=== PATIENT | male | born 1950 | race African-American/Black ===

== ENCOUNTER 2016-07-31 04:41 | Emergency (ER) | payer MEDICARE, OTHER ==
[~2016-07-31] VITALS: Ht 177.8 cm; Wt 90.0 kg
[~2016-07-31 04:41] MED LIST: AMLODIPINE; ASPI-1035 PO; ATOR40TA70 PO; CARV25TA47 PO; COLCHICINE PO; FURO20TA4 PO; ISOS60TA4 PO; LOPE2TAB26 PO; LOSA1TAB34 PO; VIT
[2016-07-31 04:43] VITALS: BP 164/92
== END 2016-07-31 08:47 | disposition left against medical advice (07) ==
LOC: ER 04:53
DX: R07.89 Other chest pain (principal); I11.9 Hypertensive heart disease without heart failure; I51.9 Heart disease, unspecified; E78.00 Pure hypercholesterolemia, unspecified; F12.10 Cannabis abuse, uncomplicated; Z88.6 Allergy status to analgesic agent; Z79.899 Other long term (current) drug therapy
CPT/HCPCS: 99283

== ENCOUNTER 2016-11-02 10:55 | Inpatient (IN) | payer MEDICARE, OTHER ==
[~2016-11-02] VITALS: Ht 167.6 cm; Wt 80.3 kg
[~2016-11-02 10:55] MED LIST changes: -ASPI-1035 PO; +ASPI-1159 PO
[2016-11-02] MEDS ORDERED: SODIUM CHLORIDE 0.9% 500 ML IV ONE (11:30)
[2016-11-02] MEDS ORDERED: CHLORDIAZEPOXIDE 25MG CAPSULE PO ONE (11:30)
[2016-11-02 11:37] LABS: BASOPHILS % 1.7 % (0.0-2.0); EOSINOPHILS % 8.5 % (0.0-5.0); HEMATOCRIT. 33.3 % (42.0-52.0); HEMOGLOBIN. 11.4 g/dL (14.0-18.0); LYMPHOCYTES % 32.4 % (20.0-50.0); MEAN CORPUSCULAR HEMOGLOBIN 33.7 pg (28.0-32.0); MEAN CORPUSCULAR VOLUME 98.2 fL (80.0-94.0); MEAN PLATELET VOLUME 7.7 fl (7.4-10.4); MONOCYTES % 9.8 % (2.0-8.0); NEUTROPHILS % 47.6 % (40.0-76.0); PLATELET 199 x1000/uL (130-400); RED BLOOD CELL COUNT 3.39 mill/uL (4.7-6.1); RED CELL DISTRIBUTION WIDTH 14.6 % (11.6-14.6)
[2016-11-02 11:40] LABS: PROTHROMBIN TIME 10.1 sec
[2016-11-02 11:44] LABS: CARBON DIOXIDE 19 mEq/L (21-32); CHLORIDE 109 mEq/L (98-107); TROPONIN I 0.05 ng/mL (0.00-0.04)
[2016-11-02 11:51] LABS: CLARITY URINE CLEAR (CLEAR); COLOR URINE YELLOW (YELLOW); GLUCOSE URINE NEGATIVE (NEGATIVE); KETONES URINE 1+ (NEGATIVE); LEUKOCYTE ESTERASE URINE NEGATIVE (NEGATIVE); NITRITE URINE NEGATIVE (NEGATIVE); OCCULT BLOOD URINE TRACE (NEGATIVE); PROTEIN URINE 3+ (NEGATIVE); SPECIFIC GRAVITY URINE 1.023 (1.005-1.030)
[2016-11-02] MEDS ORDERED: POTASSIUM CHLORIDE 20MEQ TABLET SR PO ONE (12:15)
[2016-11-02 12:24] LABS: *AMPHETAMINES SCREEN URINE NEGATIVE (NEGATIVE); *BARBITURATES SCREEN URINE NEGATIVE (NEGATIVE); *BENZODIAZEPINES SCREEN URINE NEGATIVE (NEGATIVE); *COCAINE SCREEN URINE PRESUMTIVE POSITIVE (NEGATIVE); CANNABINOID URINE SCREEN NEGATIVE (NEGATIVE); METHADONE URINE SCREEN NEGATIVE (NEGATIVE); OPIATES URINE SCREEN NEGATIVE (NEGATIVE); PHENCYCLIDINE URINE SCREEN NEGATIVE (NEGATIVE)
[2016-11-02] MEDS ORDERED: CLONIDINE 0.1MG TABLET PO PRN (16:41)
[2016-11-02] MEDS ORDERED: CLONIDINE 0.2MG TABLET PO PRN (16:42)
[2016-11-02 21:20] VITALS: BP 169/86
[2016-11-02 21:30] VITALS: BP 169/86
[2016-11-02] MEDS: AMLODIPINE 5MG TABLET PO SCH (21:55)
[2016-11-03] VITALS: BP 143/83
[2016-11-03 04:00] VITALS: BP 138/87
[2016-11-03 06:35] LABS: EOSINOPHILS % 7.6 % (0.0-5.0); HEMATOCRIT. 32.8 % (42.0-52.0); HEMOGLOBIN. 10.9 g/dL (14.0-18.0); LYMPHOCYTES % 28.5 % (20.0-50.0); MEAN CORPUSCULAR HEMOGLOBIN 33.1 pg (28.0-32.0); MEAN CORPUSCULAR VOLUME 100.1 fL (80.0-94.0); MEAN PLATELET VOLUME 8.4 fl (7.4-10.4); MONOCYTES % 10.7 % (2.0-8.0); NEUTROPHILS % 52.2 % (40.0-76.0); PLATELET 198 x1000/uL (130-400); RED BLOOD CELL COUNT 3.28 mill/uL (4.7-6.1)
[2016-11-03 07:51] VITALS: BP 149/89
[2016-11-03 07:58] LABS: CHLORIDE 111 mEq/L (98-107)
[2016-11-03 08:29] LABS: CARBON DIOXIDE 17 mEq/L (21-32); CREATINE KINASE 129 IU/L (39-308); CREATINE KINASE MB FRACTION 3.2 ng/mL (0.5-3.6); HDL CHOLESTEROL 75 mg/dL (40-59); LDL CHOLESTEROL 48 mg/dL (5-100); TROPONIN I 0.05 ng/mL (0.00-0.04)
[2016-11-03] MEDS: AMLODIPINE 5MG TABLET PO SCH ×2 (08:44→20:36)
[2016-11-03 12:15] VITALS: BP 146/86
[2016-11-03] MEDS ORDERED: FURO20TA4 PO (12:33)
[2016-11-03] MEDS ORDERED: ATOR-2 PO (12:33)
[2016-11-03] MEDS ORDERED: HYDR-4134 PO (12:33)
[2016-11-03] MEDS ORDERED: TAMS0.4C31 PO (12:33)
[2016-11-03] MEDS: ASPIRIN 81MG EC TABLET PO SCH (13:19)
[2016-11-03] MEDS: FUROSEMIDE 20MG TABLET PO SCH (13:19)
[2016-11-03] MEDS ORDERED: CARV25TA47 PO ×2 (13:48)
[2016-11-03] MEDS: CARVEDILOL 25MG TABLET PO SCH ×2 (15:38→20:36)
[2016-11-03 15:55] VITALS: BP 155/97
[2016-11-03] MEDS ORDERED: MAGNESIUM 2 G PREMIX 50 ML IV NR (16:00)
[2016-11-03 20:00] VITALS: BP 160/100
[2016-11-03] MEDS ORDERED: TAMSULOSIN HCL 0.4MG SR CAPSULE PO SCH (21:00)
[2016-11-04] VITALS: BP 143/81
[2016-11-04 04:00] VITALS: BP 120/77
[2016-11-04 07:09] LABS: EOSINOPHILS % 8.2 % (0.0-5.0); HEMOGLOBIN. 10.6 g/dL (14.0-18.0); LYMPHOCYTES % 33.1 % (20.0-50.0); MEAN CORPUSCULAR HEMOGLOBIN 32.9 pg (28.0-32.0); MEAN PLATELET VOLUME 8.3 fl (7.4-10.4); MONOCYTES % 12.2 % (2.0-8.0); NEUTROPHILS % 45.5 % (40.0-76.0); PLATELET 190 x1000/uL (130-400); RED BLOOD CELL COUNT 3.24 mill/uL (4.7-6.1); RED CELL DISTRIBUTION WIDTH 14.6 % (11.6-14.6)
[2016-11-04 07:40] LABS: CARBON DIOXIDE 22 mEq/L (21-32); CHLORIDE 110 mEq/L (98-107)
[2016-11-04 08:00] VITALS: BP 144/86
[2016-11-04] MEDS: ASPIRIN 81MG EC TABLET PO SCH (09:04)
[2016-11-04] MEDS: FUROSEMIDE 20MG TABLET PO SCH (09:04)
[2016-11-04] MEDS: CARVEDILOL 25MG TABLET PO SCH (09:04)
[2016-11-04] MEDS: AMLODIPINE 5MG TABLET PO SCH (09:05)
[2016-11-04 12:00] VITALS: BP 128/87
[2016-11-04 14:27] VITALS: BP 137/90
== END 2016-11-04 16:45 | disposition home or self-care (01) | DRG 205 ==
LOC: ER 11:15 → 8WST 12:35 → ENRESERV 19:48 → EDBEDREQ 20:53
PROVIDERS: ADMIT Internal Medicine Nephrology; ATTEND Internal Medicine Nephrology
DX: M94.0 Chondrocostal junction syndrome [Tietze] (principal); E43 Unspecified severe protein-calorie malnutrition; I47.2 Ventricular tachycardia; E87.2 Acidosis; I42.9 Cardiomyopathy, unspecified; K57.90 Diverticulosis of intestine, part unspecified, without perforation or abscess without bleeding; N18.3 Chronic kidney disease, stage 3 (moderate); M10.9 Gout, unspecified; I12.9 Hypertensive chronic kidney disease with stage 1 through stage 4 chronic kidney disease, or unspecified chronic kidney disease; D64.9 Anemia, unspecified; E78.00 Pure hypercholesterolemia, unspecified; E78.5 Hyperlipidemia, unspecified; E83.42 Hypomagnesemia; F10.10 Alcohol abuse, uncomplicated; F14.10 Cocaine abuse, uncomplicated; M19.90 Unspecified osteoarthritis, unspecified site; Z88.6 Allergy status to analgesic agent; Z68.28 Body mass index [BMI] 28.0-28.9, adult; Z86.73 Personal history of transient ischemic attack (TIA), and cerebral infarction without residual deficits; Z79.899 Other long term (current) drug therapy
CPT/HCPCS: 36415; 71010; 80053; 80061; 80305; 81001; 82550; 82553; 83690; 83735; 83880; 84481; 84484; 85025; 85379; 85610; 93005; 93306; 96360; 99285; J3475; J7040; J7050

== ENCOUNTER 2016-11-16 17:52 | Inpatient (IN) | payer MEDICARE, OTHER ==
[~2016-11-16] VITALS: Ht 167.6 cm; Wt 76.4 kg
[~2016-11-16 17:52] MED LIST changes: +ATOR-2 PO; +HYDR-4134 PO; +TAMS0.4C31 PO
[2016-11-16] MEDS ORDERED: SODIUM CHLORIDE 0.9% 1,000 ML IV ONE (18:07)
[2016-11-16] MEDS ORDERED: KETOROLAC 15MG/ML VIAL IV ONE (18:15)
[2016-11-16 18:48] LABS: BASOPHILS % 1.3 % (0.0-2.0); EOSINOPHILS % 1.5 % (0.0-5.0); HEMATOCRIT. 34.4 % (42.0-52.0); HEMOGLOBIN. 11.4 g/dL (14.0-18.0); LYMPHOCYTES % 20.2 % (20.0-50.0); MEAN CORPUSCULAR HEMOGLOBIN 32.9 pg (28.0-32.0); MEAN CORPUSCULAR VOLUME 99.1 fL (80.0-94.0); MEAN PLATELET VOLUME 7.6 fl (7.4-10.4); MONOCYTES % 5.6 % (2.0-8.0); NEUTROPHILS % 71.4 % (40.0-76.0); PLATELET 326 x1000/uL (130-400); RED BLOOD CELL COUNT 3.47 mill/uL (4.7-6.1); RED CELL DISTRIBUTION WIDTH 14.4 % (11.6-14.6)
[2016-11-16 18:52] LABS: PROTHROMBIN TIME 10.1 sec
[2016-11-16 19:06] LABS: CARBON DIOXIDE 15 mEq/L (21-32); CHLORIDE 104 mEq/L (98-107); ETHANOL BLOOD 21 mg/dL; TROPONIN I 0.09 ng/mL (0.00-0.04)
[2016-11-16] MEDS ORDERED: ASPIRIN 325MG TABLET PO ONE (20:00)
[2016-11-16 20:39] LABS: CLARITY URINE CLEAR (CLEAR); COLOR URINE YELLOW (YELLOW); GLUCOSE URINE NEGATIVE (NEGATIVE); KETONES URINE 1+ (NEGATIVE); LEUKOCYTE ESTERASE URINE NEGATIVE (NEGATIVE); NITRITE URINE NEGATIVE (NEGATIVE); OCCULT BLOOD URINE NEGATIVE (NEGATIVE); PH URINE 5.5 (4.5-8.0); PROTEIN URINE 2+ (NEGATIVE); UROBILINOGEN URINE 0.2 E.U./dL (0.2-1.0)
[2016-11-16 20:56] LABS: *AMPHETAMINES SCREEN URINE NEGATIVE (NEGATIVE); *BARBITURATES SCREEN URINE NEGATIVE (NEGATIVE); *BENZODIAZEPINES SCREEN URINE NEGATIVE (NEGATIVE); *COCAINE SCREEN URINE NEGATIVE (NEGATIVE); CANNABINOID URINE SCREEN NEGATIVE (NEGATIVE); METHADONE URINE SCREEN NEGATIVE (NEGATIVE); OPIATES URINE SCREEN NEGATIVE (NEGATIVE); PHENCYCLIDINE URINE SCREEN NEGATIVE (NEGATIVE)
[2016-11-17] VITALS (7 sets, daily range): BP systolic 132–173; BP diastolic 65–99
[2016-11-17] MEDS ORDERED: MAGNESIUM/ALUMINUM HYDROXIDE/SIMETHICONE 30ML UDC PO PRN (01:00)
[2016-11-17] MEDS ORDERED: DOCUSATE SODIUM 100MG CAPSULE PO PRN (01:00)
[2016-11-17] MEDS ORDERED: ONDANSETRON HCL 4MG/2ML VIAL IV PRN (01:00)
[2016-11-17] MEDS ORDERED: ENOXAPARIN 40MG/0.4ML SYR SUBCUT SCH ×2 (03:00→09:00)
[2016-11-17] MEDS: CLONIDINE 0.1MG TABLET PO PRN (09:18)
[2016-11-17] MEDS: ISOSORBIDE MONONITRATE 60MG TABLET SR 24HR PO SCH (17:40)
[2016-11-17] MEDS: ASPIRIN 81MG EC TABLET PO SCH (17:40)
[2016-11-17] MEDS: CARVEDILOL 25MG TABLET PO SCH (17:40)
[2016-11-17] MEDS: ATORVASTATIN CALCIUM 40MG TABLET PO SCH (21:04)
[2016-11-17] MEDS: TAMSULOSIN HCL 0.4MG SR CAPSULE PO SCH (21:06)
[2016-11-17] MEDS: HYDRALAZINE HCL 25MG TABLET PO SCH (21:07)
[2016-11-18] VITALS: BP 124/75
[2016-11-18 04:00] VITALS: BP 137/85
[2016-11-18] MEDS: HYDRALAZINE HCL 25MG TABLET PO SCH ×3 (05:22→21:00)
[2016-11-18 06:06] LABS: BASOPHILS % 0.6 % (0.0-2.0); EOSINOPHILS % 5.1 % (0.0-5.0); HEMATOCRIT. 29.9 % (42.0-52.0); HEMOGLOBIN. 9.9 g/dL (14.0-18.0); MEAN CORPUSCULAR HEMOGLOBIN 32.9 pg (28.0-32.0); MEAN CORPUSCULAR VOLUME 99.3 fL (80.0-94.0); MEAN PLATELET VOLUME 7.9 fl (7.4-10.4); MONOCYTES % 11.9 % (2.0-8.0); NEUTROPHILS % 57.4 % (40.0-76.0); PLATELET 260 x1000/uL (130-400); RED BLOOD CELL COUNT 3.01 mill/uL (4.7-6.1); RED CELL DISTRIBUTION WIDTH 14.6 % (11.6-14.6)
[2016-11-18 08:00] VITALS: BP 141/88
[2016-11-18] MEDS: CARVEDILOL 25MG TABLET PO SCH ×2 (08:50→17:15)
[2016-11-18] MEDS: ASPIRIN 81MG EC TABLET PO SCH (08:50)
[2016-11-18] MEDS: ISOSORBIDE MONONITRATE 60MG TABLET SR 24HR PO SCH (08:50)
[2016-11-18] MEDS ORDERED: ENOXAPARIN 40MG/0.4ML SYR SUBCUT SCH (09:00)
[2016-11-18] MEDS ORDERED: CLOPIDOGREL 75MG TABLET PO SCH (09:00)
[2016-11-18] MEDS ORDERED: MEDICATION NOT ON FORMULARY EA (Atorvastatin Calcium 1 TAB) PO SCH (09:00)
[2016-11-18 12:00] VITALS: BP 105/69
[2016-11-18 16:00] VITALS: BP 135/75
[2016-11-18] MEDS ORDERED: MONTELUKAST SODIUM 10MG TABLET PO SCH (17:00)
[2016-11-18] MEDS ORDERED: DIGOXIN 125MCG TABLET PO SCH (18:00)
[2016-11-18 20:00] VITALS: BP 151/101
[2016-11-18] MEDS: ATORVASTATIN CALCIUM 40MG TABLET PO SCH (20:57)
[2016-11-18] MEDS: TAMSULOSIN HCL 0.4MG SR CAPSULE PO SCH (20:57)
[2016-11-19] VITALS (7 sets, daily range): BP systolic 113–162; BP diastolic 75–112
[2016-11-19] MEDS: HYDRALAZINE HCL 25MG TABLET PO SCH (05:38)
[2016-11-19 06:28] LABS: BASOPHILS % 0.9 % (0.0-2.0); EOSINOPHILS % 6.1 % (0.0-5.0); HEMATOCRIT. 29.9 % (42.0-52.0); HEMOGLOBIN. 9.9 g/dL (14.0-18.0); MEAN CORPUSCULAR VOLUME 99.5 fL (80.0-94.0); MEAN PLATELET VOLUME 7.9 fl (7.4-10.4); MONOCYTES % 12.6 % (2.0-8.0); NEUTROPHILS % 48.4 % (40.0-76.0); PLATELET 232 x1000/uL (130-400); RED CELL DISTRIBUTION WIDTH 14.5 % (11.6-14.6)
[2016-11-19 07:22] LABS: CARBON DIOXIDE 24 mEq/L (21-32); CHLORIDE 111 mEq/L (98-107)
[2016-11-19] MEDS: ASPIRIN 81MG EC TABLET PO SCH (08:28)
[2016-11-19] MEDS: CLONIDINE 0.1MG TABLET PO PRN ×2 (08:29→16:17)
[2016-11-19] MEDS: ISOSORBIDE MONONITRATE 60MG TABLET SR 24HR PO SCH (08:29)
[2016-11-19] MEDS: CARVEDILOL 25MG TABLET PO SCH ×2 (08:29→16:18)
[2016-11-19] MEDS: ACETAMINOPHEN 325MG TABLET PO PRN (08:39)
[2016-11-19] MEDS ORDERED: POTASSIUM CHLORIDE 20MEQ TABLET SR PO SCH (13:15)
[2016-11-19] MEDS: HYDRALAZINE HCL 50MG TABLET PO SCH (13:44)
[2016-11-19] MEDS: FUROSEMIDE 20MG TABLET PO SCH (13:45)
[2016-11-19] MEDS: LOSARTAN POTASSIUM 50 MG TABLET PO SCH (18:39)
[2016-11-19] MEDS: ATORVASTATIN CALCIUM 40MG TABLET PO SCH (20:42)
[2016-11-19] MEDS: TAMSULOSIN HCL 0.4MG SR CAPSULE PO SCH (20:43)
[2016-11-19] MEDS: AMLODIPINE 5MG TABLET PO SCH (20:43)
[2016-11-20] VITALS: BP 153/85
[2016-11-20] MEDS: HYDRALAZINE HCL 50MG TABLET PO SCH ×2 (01:07→06:48)
[2016-11-20 04:00] VITALS: BP 137/90
[2016-11-20 06:22] LABS: BASOPHILS % 0.8 % (0.0-2.0); EOSINOPHILS % 5.3 % (0.0-5.0); HEMATOCRIT. 29.8 % (42.0-52.0); HEMOGLOBIN. 10.1 g/dL (14.0-18.0); LYMPHOCYTES % 24.5 % (20.0-50.0); MEAN CORPUSCULAR HEMOGLOBIN 33.5 pg (28.0-32.0); MEAN CORPUSCULAR VOLUME 99.3 fL (80.0-94.0); MEAN PLATELET VOLUME 8.4 fl (7.4-10.4); MONOCYTES % 10.7 % (2.0-8.0); NEUTROPHILS % 58.7 % (40.0-76.0); PLATELET 238 x1000/uL (130-400); RED CELL DISTRIBUTION WIDTH 14.7 % (11.6-14.6)
[2016-11-20] MEDS: ACETAMINOPHEN 325MG TABLET PO PRN ×2 (07:00→11:57)
[2016-11-20 07:45] LABS: CHLORIDE 108 mEq/L (98-107)
[2016-11-20 07:54] LABS: CARBON DIOXIDE 23 mEq/L (21-32); HDL CHOLESTEROL 70 mg/dL (40-59); LDL CHOLESTEROL 49 mg/dL (5-100)
[2016-11-20 08:00] VITALS: BP 157/79
[2016-11-20] MEDS ORDERED: MAGNESIUM 2 G PREMIX 50 ML IV SCH (10:00)
[2016-11-20] MEDS: ASPIRIN 81MG EC TABLET PO SCH (10:13)
[2016-11-20] MEDS: ISOSORBIDE MONONITRATE 60MG TABLET SR 24HR PO SCH (10:13)
[2016-11-20] MEDS: LOSARTAN POTASSIUM 50 MG TABLET PO SCH (10:14)
[2016-11-20] MEDS: FUROSEMIDE 20MG TABLET PO SCH (10:14)
[2016-11-20] MEDS: CARVEDILOL 25MG TABLET PO SCH (10:14)
[2016-11-20] MEDS: AMLODIPINE 5MG TABLET PO SCH (10:14)
[2016-11-20 12:00] VITALS: BP 127/70
[2016-11-20 12:26] VITALS: BP 135/75
== END 2016-11-20 14:35 | disposition home or self-care (01) | DRG 683 ==
LOC: ER 18:18 → 5WST 22:55 → ENRESERV 23:07 → SUPCPDRO 11-17 00:46
PROVIDERS: ADMIT Internal Medicine Nephrology; ATTEND Internal Medicine Nephrology
DX: N17.9 Acute kidney failure, unspecified (principal); I13.0 Hypertensive heart and chronic kidney disease with heart failure and stage 1 through stage 4 chronic kidney disease, or unspecified chronic kidney disease; E87.2 Acidosis; I42.0 Dilated cardiomyopathy; M94.0 Chondrocostal junction syndrome [Tietze]; K21.9 Gastro-esophageal reflux disease without esophagitis; E78.00 Pure hypercholesterolemia, unspecified; E78.5 Hyperlipidemia, unspecified; E86.0 Dehydration; E87.6 Hypokalemia; F14.10 Cocaine abuse, uncomplicated; F17.210 Nicotine dependence, cigarettes, uncomplicated; I50.9 Heart failure, unspecified; I16.0 Hypertensive urgency; M10.9 Gout, unspecified; N18.3 Chronic kidney disease, stage 3 (moderate); N40.0 Benign prostatic hyperplasia without lower urinary tract symptoms; Z79.82 Long term (current) use of aspirin; Z79.899 Other long term (current) drug therapy; Z82.49 Family history of ischemic heart disease and other diseases of the circulatory system; Z86.73 Personal history of transient ischemic attack (TIA), and cerebral infarction without residual deficits; Z91.19 Patient's noncompliance with other medical treatment and regimen; Z88.8 Allergy status to other drugs, medicaments and biological substances
CPT/HCPCS: 36415; 71010; 80048; 80053; 80061; 80305; 81001; 83036; 83605; 83690; 83735; 83880; 84484; 84550; 85025; 85610; 87493; 93005; 93306; 96374; 99291; G0482; J1650; J1885; J3475; J7030

== ENCOUNTER 2016-11-29 20:37 | Emergency (ER) | payer MEDICARE, OTHER ==
[~2016-11-29] VITALS: Ht 167.6 cm; Wt 75.0 kg
[~2016-11-29 20:37] MED LIST changes: -ATOR40TA70 PO
[2016-11-29 20:40] VITALS: BP 140/58
== END 2016-11-29 21:00 | disposition left against medical advice (07) ==
LOC: ER 20:42
DX: Z53.21 Procedure and treatment not carried out due to patient leaving prior to being seen by health care provider (principal)

== ENCOUNTER 2016-12-28 10:14 | Inpatient (IN) | payer MEDICARE, OTHER ==
[~2016-12-28] VITALS: Ht 182.9 cm; Wt 80.7 kg
[2016-12-28] MEDS ORDERED: ASPIRIN 81MG TABLET PO ONE (12:15)
[2016-12-28 12:51] LABS: BASOPHILS % 1.4 % (0.0-2.0); EOSINOPHILS % 1.5 % (0.0-5.0); HEMATOCRIT. 28.4 % (42.0-52.0); HEMOGLOBIN. 9.5 g/dL (14.0-18.0); LYMPHOCYTES % 19.6 % (20.0-50.0); MEAN CORPUSCULAR HEMOGLOBIN 33.8 pg (28.0-32.0); MEAN CORPUSCULAR VOLUME 101.4 fL (80.0-94.0); MEAN PLATELET VOLUME 7.3 fl (7.4-10.4); MONOCYTES % 9.1 % (2.0-8.0); NEUTROPHILS % 68.4 % (40.0-76.0); PLATELET 254 x1000/uL (130-400); RED CELL DISTRIBUTION WIDTH 16.3 % (11.6-14.6)
[2016-12-28 12:59] LABS: CARBON DIOXIDE 17 mEq/L (21-32); CHLORIDE 108 mEq/L (98-107)
[2016-12-28 13:05] LABS: TROPONIN I 0.06 ng/mL (0.00-0.04)
[2016-12-28 13:24] LABS: CLARITY URINE CLEAR (CLEAR); COLOR URINE YELLOW (YELLOW); GLUCOSE URINE NEGATIVE (NEGATIVE); KETONES URINE TRACE (NEGATIVE); LEUKOCYTE ESTERASE URINE TRACE (NEGATIVE); NITRITE URINE NEGATIVE (NEGATIVE); OCCULT BLOOD URINE NEGATIVE (NEGATIVE); PROTEIN URINE NEGATIVE (NEGATIVE); SPECIFIC GRAVITY URINE 1.015 (1.005-1.030); UROBILINOGEN URINE 0.2 E.U./dL (0.2-1.0)
[2016-12-28 14:02] LABS: *AMPHETAMINES SCREEN URINE NEGATIVE (NEGATIVE); *BARBITURATES SCREEN URINE NEGATIVE (NEGATIVE); *BENZODIAZEPINES SCREEN URINE NEGATIVE (NEGATIVE); *COCAINE SCREEN URINE NEGATIVE (NEGATIVE); CANNABINOID URINE SCREEN NEGATIVE (NEGATIVE); METHADONE URINE SCREEN NEGATIVE (NEGATIVE); OPIATES URINE SCREEN NEGATIVE (NEGATIVE); PHENCYCLIDINE URINE SCREEN NEGATIVE (NEGATIVE)
[2016-12-28 18:50] VITALS: BP 175/67
[2016-12-28] MEDS ORDERED: HYDROCODONE/ACETAMINOPHEN 5/325MG TABLET PO PRN (19:00)
[2016-12-28] MEDS ORDERED: ONDANSETRON HCL 4MG/2ML VIAL IV PRN (19:00)
[2016-12-28] MEDS ORDERED: ACETAMINOPHEN 325MG TABLET PO PRN (19:00)
[2016-12-28] MEDS ORDERED: CLONIDINE 0.1MG TABLET PO PRN (19:00)
[2016-12-28] MEDS: ENOXAPARIN 40MG/0.4ML SYR SUBCUT SCH (19:06)
[2016-12-28] MEDS: AMLODIPINE 5MG TABLET PO SCH (19:08)
[2016-12-28 19:38] LABS: CREATINE KINASE MB FRACTION 2.3 ng/mL (0.5-3.6); TROPONIN I 0.07 ng/mL (0.00-0.04)
[2016-12-28 19:51] VITALS: BP 175/67
[2016-12-28 20:00] VITALS: BP 163/56
[2016-12-29] VITALS (8 sets, daily range): BP systolic 126–176; BP diastolic 58–89
[2016-12-29 06:26] LABS: HEMATOCRIT. 30.1 % (42.0-52.0); MEAN CORPUSCULAR HEMOGLOBIN 33.5 pg (28.0-32.0); MEAN CORPUSCULAR VOLUME 101.3 fL (80.0-94.0); MEAN PLATELET VOLUME 7.5 fl (7.4-10.4); PLATELET 257 x1000/uL (130-400); RED BLOOD CELL COUNT 2.97 mill/uL (4.7-6.1); RED CELL DISTRIBUTION WIDTH 16.5 % (11.6-14.6)
[2016-12-29 07:07] LABS: CARBON DIOXIDE 20 mEq/L (21-32); CHLORIDE 112 mEq/L (98-107); CREATINE KINASE 105 IU/L (39-308); TROPONIN I 0.06 ng/mL (0.00-0.04)
[2016-12-29 07:13] LABS: CREATINE KINASE MB FRACTION 1.8 ng/mL (0.5-3.6); LDL CHOLESTEROL 67 mg/dL (5-100)
[2016-12-29 07:17] LABS: HDL CHOLESTEROL 82 mg/dL (40-59)
[2016-12-29] MEDS: ASPIRIN 81MG TABLET PO SCH (09:29)
[2016-12-29] MEDS: AMLODIPINE 5MG TABLET PO SCH ×2 (09:29→17:21)
[2016-12-29 09:54] LABS: PLATELET ESTIMATE NORMAL
[2016-12-29] MEDS ORDERED: MEDICATION NOT ON FORMULARY EA (Atorvastatin Calcium 1 TAB) PO SCH (13:30)
[2016-12-29] MEDS: HYDRALAZINE HCL 25MG TABLET PO SCH ×2 (13:42→22:48)
[2016-12-29] MEDS: TAMSULOSIN HCL 0.4MG SR CAPSULE PO SCH (13:42)
[2016-12-29] MEDS: CARVEDILOL 25MG TABLET PO SCH ×2 (13:42→21:25)
[2016-12-29] MEDS ORDERED: ATORVASTATIN CALCIUM 40MG TABLET PO SCH (21:00)
[2016-12-29] MEDS: ENOXAPARIN 40MG/0.4ML SYR SUBCUT SCH (21:24)
[2016-12-30] VITALS: BP 144/80
[2016-12-30 04:00] VITALS: BP 140/85
[2016-12-30] MEDS: HYDRALAZINE HCL 25MG TABLET PO SCH ×2 (06:31→14:00)
[2016-12-30 06:45] LABS: BASOPHILS % 1.9 % (0.0-2.0); EOSINOPHILS % 5.2 % (0.0-5.0); HEMATOCRIT. 30.8 % (42.0-52.0); HEMOGLOBIN. 10.2 g/dL (14.0-18.0); LYMPHOCYTES % 40.9 % (20.0-50.0); MEAN CORPUSCULAR HEMOGLOBIN 33.8 pg (28.0-32.0); MEAN PLATELET VOLUME 7.8 fl (7.4-10.4); MONOCYTES % 13.4 % (2.0-8.0); NEUTROPHILS % 38.6 % (40.0-76.0); PLATELET 245 x1000/uL (130-400); RED BLOOD CELL COUNT 3.02 mill/uL (4.7-6.1); RED CELL DISTRIBUTION WIDTH 16.3 % (11.6-14.6)
[2016-12-30 07:15] LABS: CARBON DIOXIDE 22 mEq/L (21-32); CHLORIDE 112 mEq/L (98-107); HDL CHOLESTEROL 74 mg/dL (40-59); LDL CHOLESTEROL 68 mg/dL (5-100); TROPONIN I 0.03 ng/mL (0.00-0.04)
[2016-12-30 08:00] VITALS: BP 138/78
[2016-12-30] MEDS ORDERED: ASPIRIN 81MG EC TABLET PO SCH (09:00)
[2016-12-30] MEDS: ASPIRIN 81MG TABLET PO SCH (09:13)
[2016-12-30] MEDS: CARVEDILOL 25MG TABLET PO SCH (09:18)
[2016-12-30] MEDS: AMLODIPINE 5MG TABLET PO SCH (09:18)
[2016-12-30] MEDS: TAMSULOSIN HCL 0.4MG SR CAPSULE PO SCH (09:18)
[2016-12-30 14:15] VITALS: BP 122/70
== END 2016-12-30 14:45 | disposition home or self-care (01) | DRG 291 ==
LOC: ER 10:14 → 6WST 14:35 → EDBEDREQ 16:30 → ENRESERV 16:54
PROVIDERS: ADMIT Internal Medicine Nephrology; ATTEND Internal Medicine Nephrology
DX: I13.0 Hypertensive heart and chronic kidney disease with heart failure and stage 1 through stage 4 chronic kidney disease, or unspecified chronic kidney disease (principal); I50.43 Acute on chronic combined systolic (congestive) and diastolic (congestive) heart failure; N17.9 Acute kidney failure, unspecified; I42.0 Dilated cardiomyopathy; K76.0 Fatty (change of) liver, not elsewhere classified; I73.9 Peripheral vascular disease, unspecified; N18.3 Chronic kidney disease, stage 3 (moderate); E78.5 Hyperlipidemia, unspecified; D64.9 Anemia, unspecified; F10.10 Alcohol abuse, uncomplicated; F14.10 Cocaine abuse, uncomplicated; F17.200 Nicotine dependence, unspecified, uncomplicated; E78.00 Pure hypercholesterolemia, unspecified; I25.10 Atherosclerotic heart disease of native coronary artery without angina pectoris; N18.9 Chronic kidney disease, unspecified; N40.0 Benign prostatic hyperplasia without lower urinary tract symptoms; Z79.82 Long term (current) use of aspirin; Z79.899 Other long term (current) drug therapy; Z82.49 Family history of ischemic heart disease and other diseases of the circulatory system; Z86.73 Personal history of transient ischemic attack (TIA), and cerebral infarction without residual deficits; Z88.6 Allergy status to analgesic agent; E83.51 Hypocalcemia
CPT/HCPCS: 36415; 71010; 76770; 80053; 80061; 80305; 81001; 82550; 82553; 83036; 83735; 83880; 84443; 84484; 85025; 85379; 85610; 85651; 93005; 93306; 99285; J1650

== ENCOUNTER 2017-01-11 21:01 | Emergency (ER) | payer MEDICARE, OTHER ==
[~2017-01-11] VITALS: Ht 182.9 cm; Wt 79.5 kg
[~2017-01-11 21:01] MED LIST changes: -AMLODIPINE; -COLCHICINE PO; -FURO20TA4 PO; -ISOS60TA4 PO; -LOPE2TAB26 PO; -LOSA1TAB34 PO; -VIT
[2017-01-11 22:36] LABS: BASOPHILS % 0.5 % (0.0-2.0); EOSINOPHILS % 4.3 % (0.0-5.0); HEMATOCRIT. 27.7 % (42.0-52.0); HEMOGLOBIN. 9.4 g/dL (14.0-18.0); LYMPHOCYTES % 51.4 % (20.0-50.0); MEAN CORPUSCULAR HEMOGLOBIN 33.6 pg (28.0-32.0); MEAN CORPUSCULAR VOLUME 98.9 fL (80.0-94.0); MEAN PLATELET VOLUME 7.3 fl (7.4-10.4); MONOCYTES % 6.6 % (2.0-8.0); NEUTROPHILS % 37.2 % (40.0-76.0); PLATELET 221 x1000/uL (130-400); RED BLOOD CELL COUNT 2.79 mill/uL (4.7-6.1); RED CELL DISTRIBUTION WIDTH 16.3 % (11.6-14.6)
[2017-01-11 22:49] LABS: CLARITY URINE CLEAR (CLEAR); COLOR URINE YELLOW (YELLOW); GLUCOSE URINE NEGATIVE (NEGATIVE); KETONES URINE NEGATIVE (NEGATIVE); LEUKOCYTE ESTERASE URINE NEGATIVE (NEGATIVE); NITRITE URINE NEGATIVE (NEGATIVE); OCCULT BLOOD URINE NEGATIVE (NEGATIVE); PROTEIN URINE TRACE (NEGATIVE); SPECIFIC GRAVITY URINE 1.008 (1.005-1.030); UROBILINOGEN URINE 0.2 E.U./dL (0.2-1.0)
[2017-01-11 22:49] LABS: CARBON DIOXIDE 24 mEq/L (21-32); CHLORIDE 100 mEq/L (98-107); ETHANOL BLOOD 223 mg/dL
[2017-01-11 23:04] LABS: *AMPHETAMINES SCREEN URINE NEGATIVE (NEGATIVE); *BARBITURATES SCREEN URINE NEGATIVE (NEGATIVE); *BENZODIAZEPINES SCREEN URINE NEGATIVE (NEGATIVE); *COCAINE SCREEN URINE NEGATIVE (NEGATIVE); CANNABINOID URINE SCREEN NEGATIVE (NEGATIVE); METHADONE URINE SCREEN NEGATIVE (NEGATIVE); OPIATES URINE SCREEN NEGATIVE (NEGATIVE); PHENCYCLIDINE URINE SCREEN NEGATIVE (NEGATIVE)
[2017-01-11] MEDS ORDERED: POTASSIUM CHLORIDE 20MEQ TABLET SR PO ONE (23:15)
[2017-01-12] MEDS ORDERED: IPRATROPIUM/ALBUTEROL 0.5-3(2.5)MG/3ML NEB HHN ONE (00:15)
[2017-01-12 02:00] VITALS: BP 138/74
== END 2017-01-12 02:00 | disposition home or self-care (01) ==
LOC: ER 21:01
DX: F10.129 Alcohol abuse with intoxication, unspecified (principal); I11.0 Hypertensive heart disease with heart failure; I50.9 Heart failure, unspecified; J44.1 Chronic obstructive pulmonary disease with (acute) exacerbation; Z79.82 Long term (current) use of aspirin; R53.1 Weakness; E87.6 Hypokalemia; Z87.448 Personal history of other diseases of urinary system
CPT/HCPCS: 36415; 71010; 80053; 80305; 81001; 83880; 85025; 93005; 94640; 99285; G0482; J7620

== ENCOUNTER 2017-01-18 02:21 | Inpatient (IN) | payer MEDICARE, OTHER ==
[~2017-01-18] VITALS: Ht 167.6 cm; Wt 70.3 kg
[2017-01-18] MEDS ORDERED: LABETALOL HCL 20MG/4ML CARPUJECT IV ONE (02:45)
[2017-01-18] MEDS ORDERED: ASPIRIN 81MG TABLET PO ONE (02:45)
[2017-01-18 03:16] LABS: BASOPHILS % 0.8 % (0.0-2.0); EOSINOPHILS % 3.2 % (0.0-5.0); HEMOGLOBIN. 10.3 g/dL (14.0-18.0); LYMPHOCYTES % 29.3 % (20.0-50.0); MEAN CORPUSCULAR HEMOGLOBIN 33.6 pg (28.0-32.0); MEAN CORPUSCULAR VOLUME 100.5 fL (80.0-94.0); MEAN PLATELET VOLUME 7.3 fl (7.4-10.4); MONOCYTES % 14.4 % (2.0-8.0); NEUTROPHILS % 52.3 % (40.0-76.0); PLATELET 323 x1000/uL (130-400); RED BLOOD CELL COUNT 3.08 mill/uL (4.7-6.1); RED CELL DISTRIBUTION WIDTH 16.5 % (11.6-14.6)
[2017-01-18 03:27] LABS: D-DIMER 0.97 mg/L FEU (<0.50); PROTHROMBIN TIME 10.1 sec (9.4-11.6)
[2017-01-18 03:29] LABS: AMMONIA 37 uMol/L (<32)
[2017-01-18 03:31] LABS: CARBON DIOXIDE 22 mEq/L (21-32); CHLORIDE 104 mEq/L (98-107); ETHANOL BLOOD 55 mg/dL; TROPONIN I 0.03 ng/mL (0.00-0.04)
[2017-01-18] MEDS ORDERED: SODIUM CHLORIDE 0.9% 1000ML BAG (SEPSIS BOLUS) IV NR (03:45)
[2017-01-18] MEDS ORDERED: LACTULOSE 20G/30ML UDC PO NR (03:45)
[2017-01-18] MEDS ORDERED: POTASSIUM BICARB/CIT ACID 25 MEQ TABLET.EFF PO NR (04:15)
[2017-01-18 05:28] LABS: CLARITY URINE CLEAR (CLEAR); COLOR URINE YELLOW (YELLOW); GLUCOSE URINE NEGATIVE (NEGATIVE); KETONES URINE NEGATIVE (NEGATIVE); LEUKOCYTE ESTERASE URINE NEGATIVE (NEGATIVE); NITRITE URINE NEGATIVE (NEGATIVE); OCCULT BLOOD URINE NEGATIVE (NEGATIVE); PROTEIN URINE TRACE (NEGATIVE); SPECIFIC GRAVITY URINE 1.024 (1.005-1.030); UROBILINOGEN URINE 0.2 E.U./dL (0.2-1.0)
[2017-01-18 05:42] LABS: *AMPHETAMINES SCREEN URINE NEGATIVE (NEGATIVE); *BARBITURATES SCREEN URINE NEGATIVE (NEGATIVE); *BENZODIAZEPINES SCREEN URINE NEGATIVE (NEGATIVE); *COCAINE SCREEN URINE NEGATIVE (NEGATIVE); CANNABINOID URINE SCREEN NEGATIVE (NEGATIVE); METHADONE URINE SCREEN NEGATIVE (NEGATIVE); OPIATES URINE SCREEN NEGATIVE (NEGATIVE); PHENCYCLIDINE URINE SCREEN NEGATIVE (NEGATIVE)
[2017-01-18] MEDS ORDERED: ACETAMINOPHEN 325MG TABLET PO PRN (08:30)
[2017-01-18] MEDS ORDERED: CLONIDINE 0.1MG TABLET PO PRN (08:30)
[2017-01-18] MEDS ORDERED: ONDANSETRON HCL 4MG/2ML VIAL IV PRN (08:30)
[2017-01-18] MEDS: SODIUM CHLORIDE 0.45% 1,000 ML IV SCH ×2 (09:30→21:46)
[2017-01-18] MEDS: MORPHINE SULFATE 4 MG/ML CPJ (NOT FOR IM USE) IV PRN ×2 (09:30→12:31)
[2017-01-18] MEDS: ENOXAPARIN 40MG/0.4ML SYR SUBCUT SCH ×3 (09:47→12:36)
[2017-01-18 11:00] VITALS: BP 193/91
[2017-01-18 12:00] VITALS: BP 193/91
[2017-01-18] MEDS ORDERED: IOHEXOL-350 100 ML BOTTLE ONE (12:06)
[2017-01-18] MEDS ORDERED: SODIUM CHLORIDE 0.9% 10ML VIAL ONE (12:06)
[2017-01-18] MEDS ORDERED: ISOS60TA4 PO (12:53)
[2017-01-18] MEDS ORDERED: KETOROLAC 10MG TABLET PO NR (13:30)
[2017-01-18] MEDS: HYDRALAZINE HCL 25MG TABLET PO SCH ×2 (14:25→21:49)
[2017-01-18] MEDS: CARVEDILOL 25MG TABLET PO SCH ×2 (14:25→21:51)
[2017-01-18 16:12] LABS: CLARITY URINE CLEAR (CLEAR); COLOR URINE YELLOW (YELLOW); GLUCOSE URINE NEGATIVE (NEGATIVE); KETONES URINE NEGATIVE (NEGATIVE); LEUKOCYTE ESTERASE URINE NEGATIVE (NEGATIVE); NITRITE URINE NEGATIVE (NEGATIVE); OCCULT BLOOD URINE NEGATIVE (NEGATIVE); PROTEIN URINE 1+ (NEGATIVE); SPECIFIC GRAVITY URINE 1.035 (1.005-1.030); UROBILINOGEN URINE 0.2 E.U./dL (0.2-1.0)
[2017-01-18] MEDS: ISOSORBIDE MONONITRATE 60MG TABLET SR 24HR PO SCH (16:25)
[2017-01-18 16:59] VITALS: BP 155/80
[2017-01-18 20:00] VITALS: BP 136/70
[2017-01-18] MEDS: IPRATROPIUM/ALBUTEROL 0.5-3(2.5)MG/3ML NEB INH SCH (20:41)
[2017-01-18] MEDS ORDERED: ATORVASTATIN CALCIUM 40MG TABLET PO SCH (21:00)
[2017-01-18] MEDS ORDERED: TAMSULOSIN HCL 0.4MG SR CAPSULE PO SCH (21:00)
[2017-01-18] MEDS: KETOROLAC 10MG TABLET PO PRN (21:50)
[2017-01-19] VITALS: BP 135/79
[2017-01-19] MEDS: IPRATROPIUM/ALBUTEROL 0.5-3(2.5)MG/3ML NEB INH SCH ×2 (02:26→09:00)
[2017-01-19 04:00] VITALS: BP 138/81
[2017-01-19] MEDS: KETOROLAC 10MG TABLET PO PRN (04:37)
[2017-01-19 06:15] LABS: BASOPHILS % 0.3 % (0.0-2.0); EOSINOPHILS % 1.4 % (0.0-5.0); HEMATOCRIT. 29.4 % (42.0-52.0); HEMOGLOBIN. 9.5 g/dL (14.0-18.0); LYMPHOCYTES % 20.1 % (20.0-50.0); MEAN CORPUSCULAR HEMOGLOBIN 33.4 pg (28.0-32.0); MEAN CORPUSCULAR VOLUME 103.6 fL (80.0-94.0); MEAN PLATELET VOLUME 7.2 fl (7.4-10.4); MONOCYTES % 14.9 % (2.0-8.0); NEUTROPHILS % 63.3 % (40.0-76.0); PLATELET 263 x1000/uL (130-400); RED BLOOD CELL COUNT 2.83 mill/uL (4.7-6.1)
[2017-01-19 06:18] LABS: CARBON DIOXIDE 19 mEq/L (21-32); CHLORIDE 106 mEq/L (98-107)
[2017-01-19 06:20] LABS: HDL CHOLESTEROL 62 mg/dL (40-59); LDL CHOLESTEROL 30 mg/dL (5-100); TROPONIN I 0.03 ng/mL (0.00-0.04)
[2017-01-19] MEDS: HYDRALAZINE HCL 25MG TABLET PO SCH (06:52)
[2017-01-19 08:11] VITALS: BP 160/80
[2017-01-19] MEDS: CARVEDILOL 25MG TABLET PO SCH (08:13)
[2017-01-19] MEDS: ISOSORBIDE MONONITRATE 60MG TABLET SR 24HR PO SCH (08:13)
[2017-01-19] MEDS: MORPHINE SULFATE 4 MG/ML CPJ (NOT FOR IM USE) IV PRN (08:14)
[2017-01-19] MEDS ORDERED: ASPIRIN 81MG EC TABLET PO SCH (09:00)
[2017-01-19 12:00] VITALS: BP 128/76
[2017-01-19 12:25] VITALS: BP 128/76
== END 2017-01-19 12:50 | disposition home or self-care (01) | DRG 563 ==
LOC: ER 02:21 → 6WST 03:24 → ENRESERV 10:04
PROVIDERS: ADMIT Internal Medicine Nephrology; ATTEND Internal Medicine Nephrology
PROC: 2W3BXYZ Immobilization of Left Upper Arm using Other Device (ICD-10-PCS; principal; 2017-01-18)
DX: S46.012A Strain of muscle(s) and tendon(s) of the rotator cuff of left shoulder, initial encounter (principal); E87.2 Acidosis; E44.0 Moderate protein-calorie malnutrition; I11.0 Hypertensive heart disease with heart failure; I42.0 Dilated cardiomyopathy; I50.22 Chronic systolic (congestive) heart failure; I16.1 Hypertensive emergency; E78.5 Hyperlipidemia, unspecified; E87.6 Hypokalemia; I25.10 Atherosclerotic heart disease of native coronary artery without angina pectoris; I25.5 Ischemic cardiomyopathy; R07.89 Other chest pain; K74.60 Unspecified cirrhosis of liver; N40.0 Benign prostatic hyperplasia without lower urinary tract symptoms; F17.210 Nicotine dependence, cigarettes, uncomplicated; Z79.82 Long term (current) use of aspirin; Z79.899 Other long term (current) drug therapy; Z72.89 Other problems related to lifestyle; Z71.6 Tobacco abuse counseling; Z88.8 Allergy status to other drugs, medicaments and biological substances; Y93.89 Activity, other specified; Y92.89 Other specified places as the place of occurrence of the external cause; Y99.8 Other external cause status
CPT/HCPCS: 36415; 71010; 71275; 73221; 74176; 80053; 80061; 80305; 81001; 82140; 83605; 83690; 83880; 84484; 85025; 85379; 85610; 85730; 87040; 87086; 93005; 94640; 94664; 96374; 96375; 99291; A4216; G0482; J1650; J2270; J2405; J3490; J7030; J7620; L3670; Q9967

== ENCOUNTER 2017-02-03 10:01 | Inpatient (IN) | payer MEDICARE, OTHER ==
[~2017-02-03] VITALS: Ht 167.6 cm; Wt 70.8 kg
[~2017-02-03 10:01] MED LIST changes: +ISOS60TA4 PO
[2017-02-03] MEDS ORDERED: TRAM50TA3 PO (10:08)
[2017-02-03] MEDS ORDERED: SODIUM CHLORIDE 0.9% 1,000 ML IV ONE (10:24)
[2017-02-03] MEDS ORDERED: ACETAMINOPHEN 325MG TABLET PO ONE (10:30)
[2017-02-03 11:30] LABS: BASOPHILS % 0.9 % (0.0-2.0); EOSINOPHILS % 1.9 % (0.0-5.0); HEMATOCRIT. 26.5 % (42.0-52.0); HEMOGLOBIN. 8.8 g/dL (14.0-18.0); LYMPHOCYTES % 19.6 % (20.0-50.0); MEAN CORPUSCULAR HEMOGLOBIN 32.4 pg (28.0-32.0); MEAN CORPUSCULAR VOLUME 98.1 fL (80.0-94.0); MEAN PLATELET VOLUME 7.2 fl (7.4-10.4); MONOCYTES % 9.5 % (2.0-8.0); NEUTROPHILS % 68.1 % (40.0-76.0); PLATELET 269 x1000/uL (130-400); RED CELL DISTRIBUTION WIDTH 17.2 % (11.6-14.6)
[2017-02-03 11:48] LABS: CARBON DIOXIDE 26 mEq/L (21-32); CHLORIDE 102 mEq/L (98-107); TROPONIN I 0.04 ng/mL (0.00-0.04)
[2017-02-03 11:49] LABS: D-DIMER 1.23 mg/L FEU (<0.50); PARTIAL THROMBOPLASTIN TIME 24.3 sec (23.4-31.0); PROTHROMBIN TIME 10.7 sec (9.4-11.6)
[2017-02-03] MEDS ORDERED: ASPIRIN 325MG EC TABLET PO ONE (12:00)
[2017-02-03] MEDS ORDERED: IOHEXOL-300 100 ML BOTTLE ONE (13:08)
[2017-02-03] MEDS ORDERED: MORPHINE SULFATE 4 MG/ML CPJ (NOT FOR IM USE) IV PRN (13:30)
[2017-02-03] MEDS ORDERED: CLONIDINE 0.1MG TABLET PO PRN (13:30)
[2017-02-03] MEDS ORDERED: ACETAMINOPHEN 325MG TABLET PO PRN (13:30)
[2017-02-03] MEDS ORDERED: ONDANSETRON HCL 4MG/2ML VIAL IV PRN (13:30)
[2017-02-03 16:00] VITALS: BP 136/69
[2017-02-03 17:02] VITALS: BP 136/69
[2017-02-03] MEDS: ENOXAPARIN 40MG/0.4ML SYR SUBCUT SCH (17:42)
[2017-02-03 20:00] VITALS: BP_SYST 140; BP_SYST 157; BP_DIAS 61; BP_DIAS 76
[2017-02-03 21:02] LABS: AMMONIA 55 uMol/L (<32)
[2017-02-03 21:07] LABS: ETHANOL BLOOD < 10 mg/dL; TROPONIN I 0.03 ng/mL (0.00-0.04)
[2017-02-03] MEDS: LOSARTAN POTASSIUM 25 MG TABLET PO SCH (21:47)
[2017-02-03] MEDS: AMLODIPINE 5MG TABLET PO SCH (21:48)
[2017-02-04] VITALS: BP 133/62
[2017-02-04 04:00] VITALS: BP 145/63
[2017-02-04 06:16] LABS: BASOPHILS % 0.8 % (0.0-2.0); EOSINOPHILS % 2.4 % (0.0-5.0); HEMATOCRIT. 26.2 % (42.0-52.0); HEMOGLOBIN. 8.7 g/dL (14.0-18.0); LYMPHOCYTES % 19.1 % (20.0-50.0); MEAN CORPUSCULAR HEMOGLOBIN 32.9 pg (28.0-32.0); MEAN PLATELET VOLUME 7.7 fl (7.4-10.4); MONOCYTES % 6.4 % (2.0-8.0); NEUTROPHILS % 71.3 % (40.0-76.0); PLATELET 259 x1000/uL (130-400); RED BLOOD CELL COUNT 2.64 mill/uL (4.7-6.1); RED CELL DISTRIBUTION WIDTH 17.7 % (11.6-14.6)
[2017-02-04 06:39] LABS: CARBON DIOXIDE 25 mEq/L (21-32); CHLORIDE 103 mEq/L (98-107)
[2017-02-04 08:00] VITALS: BP 149/53
[2017-02-04] MEDS: ASPIRIN 81MG EC TABLET PO SCH (09:27)
[2017-02-04] MEDS: LOSARTAN POTASSIUM 25 MG TABLET PO SCH ×2 (09:27→20:28)
[2017-02-04] MEDS: AMLODIPINE 5MG TABLET PO SCH ×2 (09:28→20:28)
[2017-02-04] MEDS ORDERED: REGADENOSON 0.4 MG/5 ML IV SCH (10:45)
[2017-02-04] MEDS ORDERED: POTASSIUM CHLORIDE 20MEQ TABLET SR PO SCH (11:20)
[2017-02-04 12:00] VITALS: BP_SYST 130; BP_SYST 141; BP_SYST 146; BP_DIAS 72; BP_DIAS 73; BP_DIAS 78
[2017-02-04 12:55] LABS: CLARITY URINE CLEAR (CLEAR); COLOR URINE YELLOW (YELLOW); GLUCOSE URINE NEGATIVE (NEGATIVE); KETONES URINE TRACE (NEGATIVE); LEUKOCYTE ESTERASE URINE NEGATIVE (NEGATIVE); NITRITE URINE NEGATIVE (NEGATIVE); OCCULT BLOOD URINE NEGATIVE (NEGATIVE); PROTEIN URINE 1+ (NEGATIVE); SPECIFIC GRAVITY URINE 1.026 (1.005-1.030)
[2017-02-04 13:23] LABS: *AMPHETAMINES SCREEN URINE NEGATIVE (NEGATIVE); *BARBITURATES SCREEN URINE NEGATIVE (NEGATIVE); *BENZODIAZEPINES SCREEN URINE NEGATIVE (NEGATIVE); *COCAINE SCREEN URINE NEGATIVE (NEGATIVE); CANNABINOID URINE SCREEN NEGATIVE (NEGATIVE); METHADONE URINE SCREEN NEGATIVE (NEGATIVE); OPIATES URINE SCREEN NEGATIVE (NEGATIVE); PHENCYCLIDINE URINE SCREEN NEGATIVE (NEGATIVE)
[2017-02-04 16:00] VITALS: BP 136/72
[2017-02-04] MEDS: ENOXAPARIN 40MG/0.4ML SYR SUBCUT SCH (19:13)
[2017-02-04 20:00] VITALS: BP_SYST 142; BP_SYST 143; BP_SYST 152; BP_DIAS 69; BP_DIAS 78; BP_DIAS 79
[2017-02-05] VITALS (7 sets, daily range): BP systolic 109–163; BP diastolic 57–93
[2017-02-05 07:33] LABS: BASOPHILS % 0.8 % (0.0-2.0); EOSINOPHILS % 4.6 % (0.0-5.0); HEMATOCRIT. 26.7 % (42.0-52.0); HEMOGLOBIN. 8.8 g/dL (14.0-18.0); LYMPHOCYTES % 34.5 % (20.0-50.0); MEAN CORPUSCULAR HEMOGLOBIN 32.6 pg (28.0-32.0); MEAN PLATELET VOLUME 7.7 fl (7.4-10.4); MONOCYTES % 8.6 % (2.0-8.0); NEUTROPHILS % 51.5 % (40.0-76.0); PLATELET 270 x1000/uL (130-400); RED CELL DISTRIBUTION WIDTH 17.4 % (11.6-14.6)
[2017-02-05 08:06] LABS: CARBON DIOXIDE 27 mEq/L (21-32); CHLORIDE 105 mEq/L (98-107); TROPONIN I 0.03 ng/mL (0.00-0.04)
[2017-02-05] MEDS ORDERED: REGADENOSON 0.4 MG/5 ML IV ONE (08:37)
[2017-02-05] MEDS ORDERED: POTASSIUM CHLORIDE 20MEQ TABLET SR PO NR (10:00)
[2017-02-05] MEDS: LOSARTAN POTASSIUM 25 MG TABLET PO SCH ×2 (10:16→20:29)
[2017-02-05] MEDS: ASPIRIN 81MG EC TABLET PO SCH (10:16)
[2017-02-05] MEDS: AMLODIPINE 5MG TABLET PO SCH ×2 (10:17→20:29)
[2017-02-05] MEDS ORDERED: MAGNESIUM 2 G PREMIX 50 ML IV NR (12:30)
[2017-02-05] MEDS: LANSOPRAZOLE 30MG DR CAPSULE PO SCH (17:01)
[2017-02-05] MEDS: ENOXAPARIN 40MG/0.4ML SYR SUBCUT SCH (17:12)
[2017-02-05] MEDS: FERROUS SULFATE 325MG TABLET PO SCH (17:12)
[2017-02-05] MEDS ORDERED: IRON SUCROSE COMPLEX 100 MG/5 ML ML IV SCH (17:15)
[2017-02-05 17:45] LABS: TOTAL IRON BINDING CAPACITY 189 ug/dL (250-450)
[2017-02-05] MEDS ORDERED: FERROUS SULFATE 325MG TABLET PO SCH (18:10)
[2017-02-05] MEDS: CARVEDILOL 3.125 MG TABLET PO SCH (20:29)
[2017-02-06] VITALS: BP 137/74
[2017-02-06 04:00] VITALS: BP 147/75
[2017-02-06 06:35] LABS: BASOPHILS % 0.6 % (0.0-2.0); EOSINOPHILS % 4.9 % (0.0-5.0); HEMATOCRIT. 26.5 % (42.0-52.0); HEMOGLOBIN. 8.7 g/dL (14.0-18.0); LYMPHOCYTES % 31.9 % (20.0-50.0); MEAN CORPUSCULAR HEMOGLOBIN 32.7 pg (28.0-32.0); MEAN CORPUSCULAR VOLUME 99.5 fL (80.0-94.0); MEAN PLATELET VOLUME 7.5 fl (7.4-10.4); MONOCYTES % 10.9 % (2.0-8.0); NEUTROPHILS % 51.7 % (40.0-76.0); PLATELET 255 x1000/uL (130-400); RED BLOOD CELL COUNT 2.66 mill/uL (4.7-6.1)
[2017-02-06 07:01] LABS: CARBON DIOXIDE 26 mEq/L (21-32); CHLORIDE 108 mEq/L (98-107); PHOSPHORUS 1.3 mg/dL (2.5-4.9)
[2017-02-06 08:00] VITALS: BP 166/80
[2017-02-06] MEDS: LANSOPRAZOLE 30MG DR CAPSULE PO SCH (08:08)
[2017-02-06] MEDS: FERROUS SULFATE 325MG TABLET PO SCH (08:29)
[2017-02-06] MEDS: CARVEDILOL 3.125 MG TABLET PO SCH (08:30)
[2017-02-06] MEDS: LOSARTAN POTASSIUM 25 MG TABLET PO SCH (08:30)
[2017-02-06] MEDS: AMLODIPINE 5MG TABLET PO SCH (08:31)
[2017-02-06] MEDS: ASPIRIN 81MG EC TABLET PO SCH (08:31)
[2017-02-06] MEDS ORDERED: POTASSIUM CHLORIDE 20MEQ TABLET SR PO NR (10:30)
[2017-02-06 12:00] VITALS: BP 150/76
[2017-02-06] MEDS ORDERED: CARVEDILOL 12.5MG TABLET PO SCH (21:00)
== END 2017-02-06 13:30 | disposition left against medical advice (07) | DRG 315 ==
LOC: ER 10:10 → 7WST 12:48 → EDBEDREQ 12:53 → ENRESERV 15:20
PROVIDERS: ADMIT Internal Medicine Nephrology; ATTEND Internal Medicine Nephrology
DX: I95.9 Hypotension, unspecified (principal); I47.2 Ventricular tachycardia; E44.0 Moderate protein-calorie malnutrition; I42.0 Dilated cardiomyopathy; I13.0 Hypertensive heart and chronic kidney disease with heart failure and stage 1 through stage 4 chronic kidney disease, or unspecified chronic kidney disease; I50.9 Heart failure, unspecified; E83.42 Hypomagnesemia; G90.8 Other disorders of autonomic nervous system; K76.0 Fatty (change of) liver, not elsewhere classified; I25.5 Ischemic cardiomyopathy; D63.8 Anemia in other chronic diseases classified elsewhere; F17.200 Nicotine dependence, unspecified, uncomplicated; E78.5 Hyperlipidemia, unspecified; N18.9 Chronic kidney disease, unspecified; N40.0 Benign prostatic hyperplasia without lower urinary tract symptoms; E78.00 Pure hypercholesterolemia, unspecified; E87.6 Hypokalemia; F14.10 Cocaine abuse, uncomplicated; I25.10 Atherosclerotic heart disease of native coronary artery without angina pectoris; I25.2 Old myocardial infarction; W19.XXXA Unspecified fall, initial encounter; W18.39XA Other fall on same level, initial encounter; Y92.002 Bathroom of unspecified non-institutional (private) residence as the place of occurrence of the external cause; Z79.82 Long term (current) use of aspirin; Z91.19 Patient's noncompliance with other medical treatment and regimen; Z86.73 Personal history of transient ischemic attack (TIA), and cerebral infarction without residual deficits; Z88.6 Allergy status to analgesic agent; Y93.89 Activity, other specified; Y99.8 Other external cause status; Z53.21 Procedure and treatment not carried out due to patient leaving prior to being seen by health care provider; M94.0 Chondrocostal junction syndrome [Tietze]
CPT/HCPCS: 36415; 70450; 70544; 70551; 71010; 71275; 78452; 80048; 80053; 80061; 80305; 81001; 82140; 83540; 83550; 83735; 83880; 84100; 84443; 84484; 85025; 85044; 85379; 85610; 85730; 87040; 87086; 93005; 93017; 93306; 93880; 97162; 97165; 99285; A9500; G0482; J1650; J2785; J3475; J7030; Q9967

== ENCOUNTER 2017-06-07 13:05 | Emergency (ER) | payer MEDICARE, OTHER ==
[~2017-06-07] VITALS: Ht 175.3 cm; Wt 63.0 kg
[2017-06-07 14:57] LABS: BASOPHILS % 0.7 % (0.0-2.0); EOSINOPHILS % 1.7 % (0.0-5.0); HEMATOCRIT. 33.4 % (42.0-52.0); HEMOGLOBIN. 10.7 g/dL (14.0-18.0); LYMPHOCYTES % 17.4 % (20.0-50.0); MEAN CORPUSCULAR HEMOGLOBIN 29.3 pg (28.0-32.0); MEAN CORPUSCULAR VOLUME 91.6 fL (80.0-94.0); MEAN PLATELET VOLUME 7.4 fl (7.4-10.4); MONOCYTES % 5.7 % (2.0-8.0); NEUTROPHILS % 74.5 % (40.0-76.0); PLATELET 369 x1000/uL (130-400); RED BLOOD CELL COUNT 3.65 mill/uL (4.7-6.1); RED CELL DISTRIBUTION WIDTH 17.4 % (11.6-14.6)
[2017-06-07 15:02] LABS: PROTHROMBIN TIME 10.5 sec (9.4-11.6)
[2017-06-07 15:10] LABS: CHLORIDE 112 mEq/L (98-107)
[2017-06-07 15:13] LABS: TROPONIN I < 0.02 ng/mL (0.00-0.04)
[2017-06-07] MEDS ORDERED: SODIUM CHLORIDE 0.9% 1,000 ML IV ONE (15:16)
[2017-06-07 17:58] LABS: CLARITY URINE CLEAR (CLEAR); COLOR URINE YELLOW (YELLOW); KETONES URINE NEGATIVE (NEGATIVE); LEUKOCYTE ESTERASE URINE NEGATIVE (NEGATIVE); NITRITE URINE NEGATIVE (NEGATIVE); OCCULT BLOOD URINE NEGATIVE (NEGATIVE); PROTEIN URINE NEGATIVE (NEGATIVE); SPECIFIC GRAVITY URINE 1.016 (1.005-1.030); UROBILINOGEN URINE 0.2 E.U./dL (0.2-1.0)
[2017-06-07] MEDS ORDERED: IOHEXOL-300 100 ML BOTTLE ONE (18:40)
[2017-06-07 19:30] VITALS: BP 143/65
== END 2017-06-07 20:00 | disposition home or self-care (01) ==
LOC: ER 13:45 → CANBEDREQ 23:25
DX: R10.9 Unspecified abdominal pain (principal); I11.0 Hypertensive heart disease with heart failure; I50.9 Heart failure, unspecified; I25.2 Old myocardial infarction; I25.10 Atherosclerotic heart disease of native coronary artery without angina pectoris; F17.200 Nicotine dependence, unspecified, uncomplicated; F12.10 Cannabis abuse, uncomplicated; Z88.6 Allergy status to analgesic agent
CPT/HCPCS: 36415; 71045; 74177; 80053; 81003; 83880; 84484; 85025; 85610; 93005; 96360; 96361; 99285; Q9967

== ENCOUNTER 2017-06-10 17:14 | Inpatient (IN) | payer MEDICARE, OTHER ==
[~2017-06-10] VITALS: Ht 167.6 cm; Wt 61.2 kg
[2017-06-10] MEDS ORDERED: KETOROLAC 30MG/ML VIAL IV STA (18:11)
[2017-06-10] MEDS ORDERED: SODIUM CHLORIDE 0.9% 1,000 ML IV ONE (18:11)
[2017-06-10 18:36] LABS: BASOPHILS % 0.9 % (0.0-2.0); EOSINOPHILS % 1.3 % (0.0-5.0); HEMATOCRIT. 31.8 % (42.0-52.0); HEMOGLOBIN. 10.4 g/dL (14.0-18.0); LYMPHOCYTES % 14.6 % (20.0-50.0); MEAN CORPUSCULAR HEMOGLOBIN 30.1 pg (28.0-32.0); MEAN CORPUSCULAR VOLUME 92.3 fL (80.0-94.0); MONOCYTES % 5.8 % (2.0-8.0); NEUTROPHILS % 77.4 % (40.0-76.0); PLATELET 394 x1000/uL (130-400); RED BLOOD CELL COUNT 3.45 mill/uL (4.7-6.1); RED CELL DISTRIBUTION WIDTH 17.7 % (11.6-14.6)
[2017-06-10 18:43] LABS: CHLORIDE 112 mEq/L (98-107)
[2017-06-10 18:44] LABS: PROTHROMBIN TIME 10.7 sec (9.4-11.6)
[2017-06-10] MEDS ORDERED: CLONIDINE 0.1MG TABLET PO PRN (20:45)
[2017-06-10] MEDS ORDERED: ACETAMINOPHEN 325MG TABLET PO PRN (20:45)
[2017-06-10] MEDS ORDERED: ONDANSETRON HCL 4MG/2ML VIAL IV PRN (20:45)
[2017-06-10] MEDS ORDERED: MORPHINE SULFATE 4 MG/ML CPJ (NOT FOR IM USE) IV PRN (20:45)
[2017-06-10] MEDS ORDERED: HYDROCODONE/ACETAMINOPHEN 5/325MG TABLET PO PRN (20:45)
[2017-06-10 23:50] VITALS: BP 128/62
[2017-06-11] MEDS: DEXT 5%/0.45% NACL 1000ML 1,000 ML IV SCH ×2 (01:01→12:53)
[2017-06-11 01:06] VITALS: BP 128/62
[2017-06-11 04:00] VITALS: BP 134/58
[2017-06-11 07:15] LABS: BASOPHILS % 0.6 % (0.0-2.0); EOSINOPHILS % 3.1 % (0.0-5.0); LYMPHOCYTES % 23.8 % (20.0-50.0); MEAN CORPUSCULAR HEMOGLOBIN 29.4 pg (28.0-32.0); MEAN CORPUSCULAR VOLUME 91.8 fL (80.0-94.0); MEAN PLATELET VOLUME 7.2 fl (7.4-10.4); MONOCYTES % 8.7 % (2.0-8.0); NEUTROPHILS % 63.8 % (40.0-76.0); PLATELET 354 x1000/uL (130-400); RED BLOOD CELL COUNT 3.05 mill/uL (4.7-6.1); RED CELL DISTRIBUTION WIDTH 17.1 % (11.6-14.6)
[2017-06-11 07:54] LABS: CHLORIDE 115 mEq/L (98-107); TROPONIN I < 0.02 ng/mL (0.00-0.04)
[2017-06-11 08:00] VITALS: BP_SYST 130; BP_SYST 136; BP_DIAS 55; BP_DIAS 67
[2017-06-11 09:21] LABS: TOTAL IRON BINDING CAPACITY 245 ug/dL (250-450)
[2017-06-11] MEDS: ENOXAPARIN 40MG/0.4ML SYR SUBCUT SCH (10:08)
[2017-06-11 12:00] VITALS: BP 130/67
[2017-06-11] MEDS ORDERED: LEVOFLOXACIN 500MG TABLET PO NR (12:00)
[2017-06-11] MEDS: METRONIDAZOLE 500MG TABLET PO SCH ×2 (12:53→20:34)
[2017-06-11 16:00] VITALS: BP 135/59
[2017-06-11 20:00] VITALS: BP 123/58
[2017-06-12] VITALS: BP 140/76
[2017-06-12 04:00] VITALS: BP 121/57
[2017-06-12 07:11] LABS: BASOPHILS % 0.9 % (0.0-2.0); EOSINOPHILS % 5.1 % (0.0-5.0); HEMATOCRIT. 27.4 % (42.0-52.0); HEMOGLOBIN. 9.1 g/dL (14.0-18.0); LYMPHOCYTES % 30.5 % (20.0-50.0); MEAN CORPUSCULAR HEMOGLOBIN 30.3 pg (28.0-32.0); MEAN CORPUSCULAR VOLUME 91.3 fL (80.0-94.0); MEAN PLATELET VOLUME 7.2 fl (7.4-10.4); MONOCYTES % 8.4 % (2.0-8.0); NEUTROPHILS % 55.1 % (40.0-76.0); PLATELET 350 x1000/uL (130-400); RED CELL DISTRIBUTION WIDTH 16.8 % (11.6-14.6)
[2017-06-12 08:00] VITALS: BP 154/66
[2017-06-12 08:08] LABS: AMYLASE 111 IU/L (25-115); CHLORIDE 112 mEq/L (98-107)
[2017-06-12] MEDS: ENOXAPARIN 40MG/0.4ML SYR SUBCUT SCH (09:05)
[2017-06-12] MEDS: METRONIDAZOLE 500MG TABLET PO SCH ×3 (09:05→21:56)
[2017-06-12] MEDS ORDERED: LEVOFLOXACIN 250MG TABLET PO SCH (11:00)
[2017-06-12 12:00] VITALS: BP 140/70
[2017-06-12] MEDS ORDERED: METRONIDAZOLE 500MG TABLET PO SCH (13:00)
[2017-06-12] MEDS: DEXT 5%/0.45% NACL 1000ML 1,000 ML IV SCH ×2 (15:55→17:00)
[2017-06-12 16:00] VITALS: BP 140/62
[2017-06-12 20:00] VITALS: BP 135/58
[2017-06-13] VITALS: BP 151/64
[2017-06-13 04:00] VITALS: BP 144/82
[2017-06-13] MEDS: METRONIDAZOLE 500MG TABLET PO SCH (04:52)
[2017-06-13] MEDS: DEXT 5%/0.45% NACL 1000ML 1,000 ML IV SCH (04:55)
[2017-06-13 07:24] LABS: AMYLASE 130 IU/L (25-115)
[2017-06-13 08:00] VITALS: BP 163/78
[2017-06-13] MEDS: ENOXAPARIN 40MG/0.4ML SYR SUBCUT SCH (09:20)
[2017-06-13 10:40] VITALS: BP 163/78
== END 2017-06-13 11:45 | disposition home or self-care (01) | DRG 371 ==
LOC: ER 17:14 → 6EST 20:36 → ENRESERV 22:23
PROVIDERS: ADMIT Internal Medicine Nephrology; ATTEND Internal Medicine Nephrology
DX: A04.72 Enterocolitis due to Clostridium difficile, not specified as recurrent (principal); K85.20 Alcohol induced acute pancreatitis without necrosis or infection; N17.9 Acute kidney failure, unspecified; E87.2 Acidosis; I13.0 Hypertensive heart and chronic kidney disease with heart failure and stage 1 through stage 4 chronic kidney disease, or unspecified chronic kidney disease; R16.0 Hepatomegaly, not elsewhere classified; I50.9 Heart failure, unspecified; K86.1 Other chronic pancreatitis; K57.32 Diverticulitis of large intestine without perforation or abscess without bleeding; F17.200 Nicotine dependence, unspecified, uncomplicated; I25.10 Atherosclerotic heart disease of native coronary artery without angina pectoris; N18.9 Chronic kidney disease, unspecified; F10.20 Alcohol dependence, uncomplicated; M10.9 Gout, unspecified; D72.829 Elevated white blood cell count, unspecified; D64.9 Anemia, unspecified; Z88.8 Allergy status to other drugs, medicaments and biological substances; Z86.73 Personal history of transient ischemic attack (TIA), and cerebral infarction without residual deficits; Z79.899 Other long term (current) drug therapy; I25.2 Old myocardial infarction
CPT/HCPCS: 36415; 71045; 74176; 74177; 80048; 80053; 81003; 82150; 82270; 83540; 83550; 83690; 83880; 84484; 85025; 85610; 87040; 87493; 93005; 96360; 96361; 96374; 99285; G0482; J1650; J1885; J7030; Q9967

== ENCOUNTER 2019-01-06 18:26 | Emergency (ER) | payer MEDICARE, OTHER ==
[~2019-01-06] VITALS: Ht 167.6 cm; Wt 81.0 kg
[2019-01-06 20:03] VITALS: BP 118/48
== END 2019-01-07 00:25 | disposition left against medical advice (07) ==
LOC: ER 23:31
DX: Z53.21 Procedure and treatment not carried out due to patient leaving prior to being seen by health care provider (principal); R07.2 Precordial pain
CPT/HCPCS: 93005

== ENCOUNTER 2020-01-25 12:18 | Emergency (ER) | payer MEDICARE, MEDICAID, OTHER ==
[~2020-01-25] VITALS: Ht 172.7 cm; Wt 73.0 kg
[2020-01-25 13:29] LABS: BASOPHILS % 0.8 % (0.0-2.0); EOSINOPHILS % 8.2 % (0.0-5.0); HEMATOCRIT. 29.3 % (42.0-52.0); HEMOGLOBIN. 9.7 g/dL (14.0-18.0); LYMPHOCYTES % 22.9 % (20.0-50.0); MEAN CORPUSCULAR HEMOGLOBIN 32.3 pg (28.0-32.0); MEAN PLATELET VOLUME 6.8 fl (7.4-10.4); MONOCYTES % 7.8 % (2.0-8.0); NEUTROPHILS % 60.3 % (40.0-76.0); PLATELET 298 x1000/uL (130-400); RED BLOOD CELL COUNT 2.99 mill/uL (4.7-6.1); RED CELL DISTRIBUTION WIDTH 13.7 % (11.6-14.6)
[2020-01-25 13:51] LABS: CHLORIDE 117 mEq/L (98-107)
[2020-01-25 14:19] VITALS: BP 112/64
== END 2020-01-25 14:20 | disposition left against medical advice (07) ==
LOC: ER 12:28 → CANBEDREQ 01-26 03:55
DX: R55 Syncope and collapse (principal); I11.0 Hypertensive heart disease with heart failure; I50.9 Heart failure, unspecified; I25.2 Old myocardial infarction; I10 Essential (primary) hypertension; Z88.6 Allergy status to analgesic agent; Z98.890 Other specified postprocedural states
CPT/HCPCS: 36415; 71045; 80053; 83880; 84484; 85025; 93005; 99285